=== PATIENT | female | born 1975 | race Caucasian/White ===

== ENCOUNTER → 2017-01-20 | Outpatient (CLI) | payer BC ==
[~2017-01-20] MED LIST: NORCO 5-325 MG1 TAB PO
== END | disposition disaster alternative care site (69) ==
LOC: GRAD 16:31
DX: D72.829 Elevated white blood cell count, unspecified (principal); R10.31 Right lower quadrant pain; R50.9 Fever, unspecified; Z90.49 Acquired absence of other specified parts of digestive tract
CPT/HCPCS: Q9967